=== PATIENT | female | born 1995 | race Caucasian/White ===

== ENCOUNTER → 2018-09-20 15:44 | Outpatient (CLI) | payer BC, SELFPAY ==
[2018-09-26 04:09] LABS: HPV Genotype 16, Aptima Negative (Negative)
[2018-09-26 11:45] LABS: HPV APTIMA, High Risk Positive (Negative); HPV Genotype 18,45 Aptima Negative (Negative)
== END ==
PROVIDERS: Visit Provider Obstetrics & Gynecology
DX: Z12.4 Encounter for screening for malignant neoplasm of cervix (principal)
CPT/HCPCS: 87624; 88175; G0145

== ENCOUNTER → 2018-12-08 14:15 | Outpatient (CLI) | payer BC, SELFPAY ==
[2018-12-07 17:09] VITALS: BMI 20.1
== END ==
PROVIDERS: Referring Provider Physician Assistant Surgical; Visit Provider Physician Assistant Surgical
DX: J02.9 Acute pharyngitis, unspecified (principal)
CPT/HCPCS: 87081

== ENCOUNTER → 2019-01-02 | Outpatient (CLI) | payer BC, SELFPAY ==
[2018-12-07 17:09] VITALS: BMI 20.1
[2019-01-02 20:45] LABS: Chlamydia Trachomatis by PCR Negative (Negative); Neisserai gonorrhoeae by PCR Negative (Negative); Probe Check PASS; Sample Adequacy Control PASS; Specimen Processing Control PASS
== END | disposition home or self-care (01) ==
PROVIDERS: Visit Provider Obstetrics & Gynecology
DX: Z11.3 Encounter for screening for infections with a predominantly sexual mode of transmission (principal)
CPT/HCPCS: 87491; 87591

== ENCOUNTER → 2019-06-30 10:53 | Outpatient (CLI) | payer BC, SELFPAY ==
[2019-06-30 11:19] VITALS: BMI 20.1
[2019-07-01 12:22] LABS: Mucous, Urine 0 SEEN /hpf (<or=2+); Red Blood Cells-Urine 0 SEEN /hpf (0-5); White Blood Cells 0 SEEN /hpf (0-5)
[2019-07-01 12:23] LABS: Color, Urine Yellow (Yellow); Glucose, Dipstick Normal (Normal); Ketone-Dipstick Negative (Negative); Leukocyte Esterase-Dipstick Negative /ul (Negative); Nitrite-Dipstick Negative (Negative); Occult Blood-Urine Negative /ul (Negative); Protein-Dipstick Negative (Negative); Specific Gravity, Urine 1.015 (1.002-1.030); Urine Bilirubin Dipstick Negative (Negative); Urine Clarity Clear (Clear); Urine Urobilinogen Normal (Normal); Urine pH 6.5 (5.0 - 8.0)
[2019-07-01 12:30] LABS: Bacteria 2+ /hpf (None Seen); Squamous Epithelial Cells - UA 0-5 SEEN /hpf (5-10)
== END ==
PROVIDERS: Referring Provider Physician Assistant Medical; Visit Provider Physician Assistant Medical
DX: R30.0 Dysuria (principal)
CPT/HCPCS: 81001; 87086